=== PATIENT | male | born 1955 | race Caucasian/White ===

== ENCOUNTER → 2024-07-17 15:28 | Outpatient (REF) | payer MEDICARE, OTHER, SELFPAY | LOC: RCS 15:28 | PROVIDERS: ATTENDING PHYSICIAN Physical Medicine & Rehabilitation | DX: Z01.818 Encounter for other preprocedural examination (principal) | CPT/HCPCS: 93005 ==

== ENCOUNTER 2025-01-11 06:26 | Day surgery (SDC) | payer MEDICARE, OTHER, SELFPAY | END 2025-01-11 14:36 | disposition home or self-care (01) | LOC: GI 06:26 | PROVIDERS: ATTENDING PHYSICIAN Internal Medicine Gastroenterology | DX: Z12.11 Encounter for screening for malignant neoplasm of colon (principal); K57.30 Diverticulosis of large intestine without perforation or abscess without bleeding; K64.8 Other hemorrhoids; Z80.0 Family history of malignant neoplasm of digestive organs; D12.4 Benign neoplasm of descending colon | CPT/HCPCS: 45380; 88305 ==

== ENCOUNTER 2025-01-11 18:04 | Emergency (ER) | payer MEDICARE, OTHER, SELFPAY ==
[2025-01-11 18:10] VITALS: BP 128/95
[2025-01-11 18:28] LABS: % Basophils 0.3 % (0-2); % Eosinophils 0.1 % (0-6); % Immature Granulocytes 0.4 % (0-0.5); % Lymphocytes 2.7 % (20.5-51.1); % Monocytes 3.7 % (1.7-9.3); % Neutrophils 92.8 % (42.2-75.2); Absolute Immature Granulocytes 0.1 10^3/uL (0-0.05); Absolute Lymphocytes 0.3 10^3/uL (1.2-3.4); Absolute Monocytes 0.4 10^3/uL (0.1-0.6); Absolute Neutrophils 10.6 10^3/uL (1.4-6.5); Hematocrit 41.9 % (39.0-52.0); Mean Corp Hgb Conc. 35.8 g/dL (33.0-37.0); Mean Corpuscular Hgb 31.5 pg (27.0-31.0); Mean Platelet Volume 10.9 fL (7.4-10.4); Nucleated Red Blood Cells % 0 % (-); Platelet Count 182 10^3/uL (130-400); Red Blood Cell Count 4.76 10^6/uL (4.70-6.10); Red Cell Dist. Width 12.4 % (11.5-14.5); White Blood Cell Count 11.4 10^3/uL (4.8-10.8)
[2025-01-11 18:51] LABS: COVID-19 Antigen Negative (Negative)
[2025-01-11 19:00] LABS: ALT (SGPT) 26 U/L (0-50); AST (SGOT) 24 U/L (17-59); Albumin 4.3 g/dl (3.5-5.0); Alkaline Phosphatase 65 U/L (38-126); Blood Urea Nitrogen 21 mg/dl (9-20); Calcium 8.8 mg/dl (8.4-10.2); Carbon Dioxide 18 mmol/L (22-30); Glucose 137 mg/dl (70-99); Total Protein 6.8 g/dl (6.3-8.2); eGFR > 60.00
[2025-01-11 19:25] LABS: Chloride 114 mmol/L (98-107); Potassium 3.8 mmol/L (3.5-5.1); Sodium 141 mmol/L (135-145)
--- NOTE | 2025-01-11 20:14 | ED.GENMED ---
History of Present Illness
General
Chief Complaint: Fever
Source: patient
Exam Limitations: none
Time Seen by Provider: 01/11/25 19:54
History of Present Illness
History of Present Illness:
Patient with a routine colonoscopy earlier today. Was lying on his left side. Apparently had some coughing towards the end of the procedure. On the way home had some shaking chills. Some mild cough. No pleuritic pain or shortness of breath.
Presents for evaluation of possible aspiration. No abdominal pain. Feels better at this time
Past History
Past History
ED Past Medical History: Other (Prostatic hypertrophy)
ED Past Surgical History: Tonsilectomy
Review of Systems
Review of Systems
All Other Systems: Not applicable
Constitutional: Reports fever and chills
Respiratory: Reports cough
Cardiac: Denies chest pain or syncope
Phy Exam
Physical Exam
Physical Exam:
GENERAL: Alert and oriented in no apparent distress
EYE: Orbits normal.
NECK: Supple
CARDIAC: Regular rate and rhythm without any obvious murmurs.
LUNGS: No respiratory distress. Mild rhonchi left base. No wheezing
ABDOMEN: Soft, without focal tenderness or distention
NEUROLOGICAL: Alert and oriented , grossly non-focal
SKIN: Warm and dry, no rash or lesion, no discoloration, skin intact.
MUSCULOSKELETAL: No edema,no deformity.Good color
PSYCH: Normal and appropriate interaction.
Course
Orders/Labs/Results
Orders:
Orders
01/11/25 18:16
CR Chest - 2 Views Urgent
Comment:
Reason For Exam: fever, cough
01/11/25 18:21
COVID-19 Antigen Urgent
Source: Nasal Swab
Complete Blood Count/With Diff Urgent
Comprehensive Metabolic Panel Urgent
Influenza A+B Rapid Molecular Urgent
[place] Source: Nasal Swab
Specimen Description:
01/11/25 20:14
Ampicillin/Sulbactam 3 G [Unasyn] 3 gm 0.9% Sodium Chloride 100 ml [Nss] 100 ml IV NOW
01/11/25 20:55
Amoxicillin 875 mg/Clav 125 mg [Augmentin 875 mg/125 mg] 1 tablet PO NOW STA
Abnormal Lab Results
01/11/25
18:21
WBC 11.4 H 10^3/uL
(4.8-10.8)
MCH 31.5 H pg
(27.0-31.0)
MPV 10.9 H fL
(7.4-10.4)
Abs Immat Gran (auto) 0.1 H 10^3/uL
(0-0.05)
Absolute Neuts (auto) 10.6 H 10^3/uL
(1.4-6.5)
Absolute Lymphs (auto) 0.3 L 10^3/uL
(1.2-3.4)
Neutrophils % 92.8 H %
(42.2-75.2)
Lymphocytes % 2.7 L %
(20.5-51.1)
Chloride 114 H mmol/L
(98-107)
Carbon Dioxide 18 L mmol/L
(22-30)
BUN 21 H mg/dl
(9-20)
Glucose 137 H mg/dl
(70-99)
01/11/25 18:21
01/11/25 18:21
Vital Signs
Initial and Last Documented VS:
Initial Vital Signs
Temp Pulse Resp BP Pulse Ox
99.7 F 111 16 128/95 95
01/11/25 18:10 01/11/25 18:10 01/11/25 18:10 01/11/25 18:10 01/11/25 18:10
Last Documented Vital Signs
Temp Pulse Resp BP Pulse Ox
99.7 F 111 16 128/95 95
05/22/25 18:10 01/11/25 18:10 01/11/25 18:10 01/11/25 18:10 01/11/25 18:10
MDM/Problems Addressed
Differential Diagnosis Includes:
Symptoms consistent with aspiration pneumonitis. Patient very nontoxic and in no distress. Will give dose of Unasyn, start oral Augmentin and follow-up. Seen by GI while in the room and they are in agreement with management. Patient is
comfortable with this management
*Radiology
Radiology exam reviewed: preliminary read by ED provider (Pneumonitis left midlung.)
*Pulse Oximetry
Patient hypoxic: no
*Critical Care Note
Total Time (30-74mins, 75-104mins- exclusive of procedures): Not Applicable
Update Note
Update Note:
2012.... Patient with
ED Attending Note
-
Portions of this chart may have been created with voice recognition software.� Occasional wrong word or��sound alike� substitutions may have occurred due to the inherent limitations of voice recognition software.
Discharge Plan
Departure
Patient Disposition: Home (Routine Discharge)
Date of Disposition: 01/11/25
Time of Disposition: 20:48
Patient with high blood pressure during this ER visit?: Yes
Discharge Problem:
Aspiration pneumonitis
Instructions: Aspiration pneumonia - Discharge instructions, BLOOD PRESSURE
Prescriptions:
New
amoxicillin-pot clavulanate 875-125 mg tablet
1 tab PO BID Qty: 20 0RF
No Action
naproxen sodium [Aleve] 220 mg Tablet
220 mg PO BIDPRN PRN (Reason: mild pain)
Referrals:
Scarlett Ingram CRNP [Family Provider] - Follow up in 2-3 days
Activity Restrictions/Additional Instructions:
Return immediately with any progressive symptoms increasing shortness of breath high fever or severe chills or any other concerning symptoms
Take the next dose of oral antibiotic tonight around midnight. Then get 2 doses in tomorrow in the morning and evening
Discharge Date and Time
Print Language: [place]
[2025-01-11] MEDS: UNASYN IV (21:08)
[2025-01-11] MEDS: AUGMENTIN 875 MG/125 MG 1 TABLET PO (21:08)
[2025-01-11 21:16] VITALS: BP 128/70
== END 2025-01-11 21:50 | disposition home or self-care (01) ==
LOC: EMR 18:04
PROVIDERS: Emergency Medicine; EMERGENCY PHYSICIAN Emergency Medicine; FAMILY PHYSICIAN Nurse Practitioner
DX: J69.0 Pneumonitis due to inhalation of food and vomit (principal); R03.0 Elevated blood-pressure reading, without diagnosis of hypertension; R68.83 Chills (without fever); Z11.52 Encounter for screening for COVID-19; N40.0 Benign prostatic hyperplasia without lower urinary tract symptoms; Z98.890 Other specified postprocedural states
CPT/HCPCS: 99284; 96365; 71046; 80053; 85025; 87502; 87811